=== PATIENT | female | born 1970 | race Caucasian/White ===

== ENCOUNTER → 2016-02-28 | Outpatient (CLI) | payer OTHER ==
[~2016-02-28] VITALS: Ht 160 cm; Wt 63.9 kg
[~2016-02-28] MED LIST: APAP500 PO; BACLOFEN 10MG T10 MG PO; BACTRIM DS TAB1 EACH PO; CATAPRES-TTS 10.1 MG TD; CLEOCIN HCL150 MG PO; CLINDAMYCIN HC150 MG PO; HYDROCODONE-AP1 EA11 PO; HYDROCODONE-AP1 EAC6 PO; IBUPROFEN 800800 MG PO; LYRICA 50 MG50 MG PO; LYRICA 75 MG CA75 MG PO; LYRICA100 MG PO; LYRICA150 MG PO; MEDROLDOSEPACK PO; METHADOSE10 MG PO; NORCO 5-325 TA1 EACH PO; OXYCODONE HCL 55 MG; OXYCODONE-ACET1 EAC2 PO; VENTOLIN HFA 1818 GM INH
--- NOTE | ~2016-02-28 | HPC ---
[facility] [place] [address] [place] [address] PAIN MANAGEMENT CONSULTATION Name: NEGRA DE LA O Room #: REG [facility]#: [id number] Admission: 02/28/16 Attend Phys: Linsey Smith MD Discharge: Date of : 66 Report #: [id number] THIS REPORT FOR: //name// CC: Zackary Pino MD [facility] physician/PCP Linsey Smith DATE OF SERVICE: 02/28/2016 PRIMARY CARE PHYSICIAN: Zackary Pino M.D. CHIEF COMPLAINT: Here for medication renewal. FOLLOWUP HISTORY: The patient is a 46-year-old female who has been followed in the pain clinic because of right hand chronic regional pain syndrome. The patient continues to have pain and discomfort involving the left hand. She notes that there is an area in the middle of her hand, which she is sore. She has noticed this area of possible infection has been there for of weeks. She has been to the emergency room. She states that she was given some Bactrim to take in the interim. Overall, she has noted some exudate from area around the lesion. She notes increased pain and discomfort and is unable to touch her small finger or the thumb to her index finger. She has not noticed significant swelling in the area, but does note that it does seem to be somewhat swollen. PHYSICAL EXAMINATION: VITAL SIGNS: Blood pressure 121/72, pulse 66, respiratory rate 16 and room air saturation 95%. EXTREMITIES: The patient has a left hand with an area of irritation about the size of a nickel. She states that with certain movements of her hand, she notes that some small amount of exudate comes out. She notes increased pain in her hands since the onset of that ulcerated area. She denies any significant trauma. It feels like that this kind of started on its own and began to increase. RECOMMENDATIONS: We discussed the treatment options with the patient. At this juncture, we will continue with her current regimen of OxyContin 1 p.o. t.i.d., methadone 10 mg t.i.d., clonidine patch to the skin 0.1 q. week and baclofen 10 mg 1 p.o. b.i.d. The patient will also continue with the Bactrim which she was given in the emergency room. She will note the changes in her hand since she has been on the Bactrim. If in 3 days, the area is not improving or if at any time it worsens, she will immediately to go to the emergency room. The patient may need to see infectious disease physician and make sure that she is on the appropriate medications. We have explained to her the possibility of sepsis. If she notes any signs of changes in this wound, she will go immediately to the hospital and seek medical care. [address] [address] PAIN MANAGEMENT CONSULTATION Name: NEGRA DE LA O Room #: REG [facility]#: [id number] Admission: 02/28/16 Attend Phys: Linsey Smith MD Discharge: Date of : 66 Report #: [id number] We would like to thank you for letting us participate in her care. We hope she continues to improve. <ELECTRONICALLY SIGNED> By: Linsey Smith MD 03/17/16 1018 [id number] Linsey Smith MD /nt
[2016-02-28 09:47] VITALS: BP 121/72
== END | disposition home or self-care (01) ==
LOC: PAIN 07:12
DX: G90.511 Complex regional pain syndrome I of right upper limb (principal)

== ENCOUNTER → 2016-05-27 | Outpatient (CLI) | payer OTHER ==
[~2016-05-27] VITALS: Ht 160 cm; Wt 60.3 kg
[~2016-05-27] MED LIST changes: +ENDOCET 10-3251 EACH PO; +METHADONE HCL 110 M1 PO; +OXYCODONE HCL10 MG PO
--- NOTE | ~2016-05-27 | HPC ---
[facility] [place] [address] PAIN MANAGEMENT CONSULTATION Name: NEGRA DE LA O Room #: REG [facility].#: [id number] Admission: 05/27/16 Attend Phys: Linsey Smith MD Discharge: Date of : 66 Report #: [id number] THIS REPORT FOR: //name// CC: Zackary Pino MD [facility] physician/PCP Linsey Smith DATE OF SERVICE: 05/27/2016 FOLLOWUP COMPLAINT: "I am still having trouble moving my left hand and my right hand is getting tired, I don't know whether its overworked." FOLLOWUP HISTORY: The patient is a 46-year-old female who has been seen in the pain clinic because of chronic pain associated with her left hand. As you recall, she underwent trauma to the left hand, it was caught on a conveyor belt. She has had reflex sympathetic dystrophy/chronic regional pain syndrome and pain associated with it. She still has limited function in her hand. She finds that she is having some increased discomfort in her right hand. She feels may be that she is overusing it. She has had some numbness in her right thumb area. She is not having problems in her shoulders or arm. She can notice some increased discomfort when she is driving and her arm is extended for a period of time. She still tries to use her left arm to help stabilize the steering wheel. She notes some stiffness in her neck and joints involving her shoulder, knees, back and elbows. She does have some family members who have had some problems with arthritis. PHYSICAL EXAMINATION: Blood pressure 127/70, pulse 81, respiratory rate 16, room air saturation is 97%. The patient's height 5 feet 3 inches, weight 60 kilograms. BMI is 23. She still uses preferentially her right hand. 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 The middle and ring finger are still relatively stiff. She states she is unable to move them. She continues to try to move them with her hands when she is sitting during the course of the day. The patient has limited motion of her neck to flexion and extension, left and right lateral rotation, left and right lateral bending. When looking behind her or to the side, she generally rotates her entire body to view these areas. IMPRESSION: Chronic regional pain syndrome involving the left hand with weakness of the fingers and decreased ability to perform activities of daily living with the affected hand. Notes some decreased sensation to cold and pinprick along the left thumb area. She denies any decreased sensation to the arm or shoulder. She has significantly decreased range of motion in the neck, shoulder and arms as described above. RECOMMENDATIONS: We would recommend that the patient continue to increase her range of motion in the affected areas. We will try Medrol Dosep[place] [address] PAIN MANAGEMENT CONSULTATION Name: NEGRA DE LA O Room #: REG [facility].#: [id number] Admission: 05/27/16 Attend Phys: Linsey Smith MD Discharge: Date of : 66 Report #: [id number] efficacy in helping to decrease some of the stiffness and soreness in the upper neck area. We will continue with her opioid medications and start to decrease it to the CDC's recommended level. She will keep her medications in a guarded place given that she has young children around and young daughters. A script for baclofen 10 mg 1 p.o. b.i.d., OxyContin 10 mg 1 p.o. t.i.d., methadone 10 mg 1 p.o. t.i.d. and clonidine patch were written. We will increase her medication renewal period from 1 month to 2 months. She has taken the medication over the last 2 years with no infractions or problems. We would like to thank you for letting us participate in her care. We hope she continues to improve. By: [id number] Linsey Smith MD /nt
[2016-05-27 10:26] VITALS: BP 127/70
== END | disposition home or self-care (01) ==
LOC: PAIN 06:53
DX: G89.4 Chronic pain syndrome (principal); M79.642 Pain in left hand; M79.641 Pain in right hand

== ENCOUNTER → 2016-09-30 | Outpatient (CLI) | payer OTHER ==
[~2016-09-30] VITALS: Ht 160 cm; Wt 58.7 kg
--- NOTE | ~2016-09-30 | HPC ---
[facility] [address] [place] [address] PAIN MANAGEMENT CONSULTATION Name: NEGRA DE LA O Room #: REG [facility].#: [id number] Admission: 09/30/16 Attend Phys: Linsey Smith MD Discharge: Date of : 66 Report #: [id number] THIS REPORT FOR: //name// CC: [facility] physician/PCP Linsey Smith DATE OF SERVICE: 09/30/2016 FOLLOWUP COMPLAINT: "I ran out of medications and I have not taken them for two months." FOLLOWUP HISTORY: The patient is a 46-year-old female who has been seen in the pain clinic because of chronic regional pain syndrome involving her left hand and fingers. She ran out of her medications. She has not had an opportunity to return to the pain clinic. She has returned today for evaluation and followup. She rates her pain as an 8/10. Continues to have sharp, burning and tingling pain in her hands. Does continue to try to move and use her hand. Has noted some increased pain and discomfort involving the unaffected hand. She notes some cramping in her hand as well as soreness which can radiate up into the anterior portion of her forearm. She feels that it sometimes may be secondary to overworking the right hand. She states that she was evaluated in the past few months for possibility of carpal tunnel syndrome. PHYSICAL EXAMINATION: Blood pressure 123/76, pulse 70, respiratory rate 18, room air saturation 99%. Height 5 feet 3 inches, weight 129 pounds, BMI 22.9. The patient is not a fall risk. She continues to guard the left hand. She states it is difficult to move the hand. She is able to with considerable amount of time touch the thumb to the index finger and the little finger. Nails and skin color appear normal. IMPRESSION: Right chronic regional hand pain. RECOMMENDATIONS: 1. We discussed treatment options with the patient. She has not taken any medication for the last two months. We will not get a urine screen at this juncture given that we will not find any metabolites in the urine. 2. We will renew her medications. We have explained to her the new guidelines for use of methadone and narcotics provided by the CDC. Given the use of three methadone this placed her morphine equivalent to 240 and concomitant use of oxycodone to 60 mg for a total of 300 mg or more in equivalents. We explained that we need to comply with the new guidelines. The patient will be provided oxycodone 10 mg one p.o. b.i.d. and methadone 1 p.o. every day. This will help bring her within CDC range. We will renew her Lyrica to 100 mg 1 p.o. t.i.d. She will call us if she has any problems with her medications. [address] [address] PAIN MANAGEMENT CONSULTATION Name: NEGRA DE LA O Room #: REG [facility]#: [id number] Admission: 09/30/16 Attend Phys: Linsey Smith MD Discharge: Date of : 66 Report #: [id number] We would like to thank you for letting us participate in her care. We hope she continues to improve. By: [id number] Linsey Smith MD /
[2016-09-30 12:57] VITALS: BP 123/76
== END | disposition home or self-care (01) ==
LOC: PAIN 07:20
DX: G90.512 Complex regional pain syndrome I of left upper limb (principal)

== ENCOUNTER → 2016-11-27 | Outpatient (CLI) | payer OTHER ==
[~2016-11-27] VITALS: Ht 160 cm; Wt 57.6 kg
[~2016-11-27] MED LIST changes: +CATAPRES-TTS 11 EACH TRANSDERM
--- NOTE | ~2016-11-27 | HPC ---
[facility] [place] [address] PAIN MANAGEMENT CONSULTATION Name: NEGRA DE LA O Room #: REG [facility] [place].#: [id number] Admission: 11/27/16 Attend Phys: Linsey Smith MD Discharge: Date of : 66 Report #: [id number] THIS REPORT FOR: //name// CC: [facility] physician/PCP Linsey Smith DATE OF SERVICE: 11/27/2016 FOLLOWUP COMPLAINT: Here for medication refill. FOLLOWUP HISTORY: The patient is a 46-year-old female who has been seen in the pain clinic because of chronic pain involving her left hand. As you recall, she worked at [employer]. Her hand was inadvertently caught in a conveyor. She has suffered from reflex sympathetic dystrophy/chronic regional pain syndrome since that time. She has undergone a number of treatments. It has come to agreement between the patient and the insurance company that she had had received maximum benefit and seized treatment in the pain clinic for this particular illness and payments for medications. The patient states that she fell and broke her left wrist about 2 weeks ago. She is anticipating the possibility of surgery in the near future. PHYSICAL EXAMINATION: Blood pressure 158/59, pulse 67, respiratory rate 16, room air saturation 100, height 5 feet 3 inches, weight 127 pounds, BMI is 25. The patient has pain and discomfort in the left arm. She does not have a cast or brace on the arm. She states that she has been told that there is a fracture and that she needs to have surgery in the near future. ASSESSMENT AND PLAN: History of chronic regional pain syndrome treated with medications at this juncture, which include methadone 10 mg daily, clonidine patch 0.1 to skin q. week, Lyrica 100 mg t.i.d., and oxycodone 10/325 one p.o. b.i.d. The patient will continue with this medication. If she considers surgery on the left hand. She might have a better outcome if a regional technique has been employed. She could have a general anesthetic with a regional. It is noted that regional technique scan sometimes decrease the likelihood of worsening or recurrence of complex regional hand discomfort/RSD. We would like to thank you for letting us participate in her care. We hope she continues to improve. By: [id number] Linsey Smith MD /OSIEL
[2016-11-27 09:52] VITALS: BP 158/59
== END ==
LOC: PAIN 07:08
DX: G89.4 Chronic pain syndrome (principal)

== ENCOUNTER → 2017-02-05 | Outpatient (CLI) | payer OTHER ==
[~2017-02-05] VITALS: Ht 160 cm; Wt 54.8 kg
--- NOTE | ~2017-02-05 | HPC ---
[facility] [address] [place] [address] PAIN MANAGEMENT CONSULTATION Name: NEGRA DE LA O Room #: REG [facility].#: [id number] Admission: 02/05/17 Attend Phys: Linsey Smith MD Discharge: Date of : 66 Report #: [id number] THIS REPORT FOR: //name// CC: [facility] physician/PCP Linsey Smith DATE OF SERVICE: 02/05/2017 FOLLOWUP COMPLAINT: "I am still trying to use my hand." FOLLOWUP HISTORY: The patient is a 46-year-old female who has been followed in the Pain Clinic for a period of time. As you recall, she has suffered from an injury to her left hand. It was involved while working at [employer] and inadvertently caught her on a conveyor belt. She has been suffering from reflex sympathetic dystrophy/chronic regional pain syndrome since that time. She has continued to try physical therapy and perform activities which they provided for her to increase her left hand functionality. She has maximized her benefit from workmen's compensation. She has been seen by her primary doctor. She reports that she may have lupus. She is in the process of being worked up for this. She has some pain in her left shoulder or left hand and fingers. As you may recall, she fractured her left wrist. No surgical intervention was performed secondary to possibility of worsening her chronic regional pain syndrome symptomatology. She still notes limited ability to use her left hand, but continues to touch finger to index, middle, attempt touching of the ring and little finger. PHYSICAL EXAMINATION: VITAL SIGNS: Blood pressure 128/74, pulse 74, respiratory rate 16, room air saturation 98%. Height 5 feet 3 inches, weight 120 pounds, BMI is 21. HEENT: Unremarkable. NECK: Without adenopathy. CHEST: Clear to auscultation. HEART: Regular rate. ABDOMEN: Nontender. EXTREMITIES: Muscle strength on the right is judged to be 5/5 for the muscles in the biceps, triceps and brachioradialis. Decreased sensation to the left hand with some numbness, tingling and burning in the involved left hand. The patient is not wearing her brace. Able to flex and extend her wrists somewhat, though it is somewhat limited. Color in the fingers were pink. She does complain of some hypersensitivity to touch and burning complaint. Has some right shoulder and neck discomfort. The patient sits with her left arm in somewhat of a guarded fashion. IMPRESSION: 1. Chronic regional pain syndrome/reflex sympathetic dystrophy involving the left hand. [facility] [address] [place] [address] PAIN MANAGEMENT CONSULTATION Name: NEGRA DE LA O Room #: REG [facility]#: [id number] Admission: 02/05/17 Attend Phys: Linsey Smith MD Discharge: Date of : 66 Report #: [id number] 2. Possible lupus workup in progress. RECOMMENDATION: The patient is scheduled to follow up with the doctor at [facility] in regards to the lupus in the near future. She is scheduled to go in April. Medications: Lyrica 100 mg t.i.d., Endocet 10/325 b.i.d., methadone 10 mg 1 p.o. daily, Catapres patch 0.1 to the affected arm, baclofen 10 mg 1 p.o. b.i.d. The patient will call us if she has any problems. We have discussed the possible complications of opioid use. They could include tolerance as well as addiction. She feels that her medications are working reasonably well and keeps them in a guarded position in her home. She will follow up in the future or call us if she has any concerns. <ELECTRONICALLY SIGNED> By: Linsey Smith MD 02/17/17 0837 [id number] Linsey Smith MD /[facility]
[2017-02-05 10:29] VITALS: BP 128/74
== END ==
LOC: PAIN 07:11
DX: G90.512 Complex regional pain syndrome I of left upper limb (principal)